=== PATIENT | male | born 1960 | race Caucasian/White ===

== ENCOUNTER 2023-04-22 23:54 | Day surgery (SDC) | payer MEDICARE, OTHER, SELFPAY ==
[2023-04-22 19:01] VITALS: BMI 27.8
[2023-04-22 19:03] VITALS: BP 128/80
[2023-04-22 19:22] LABS: % Basophils 0.4 % (0-2); % Eosinophils 0.5 % (0-6); % Immature Granulocytes 0.4 % (0-0.5); % Lymphocytes 14.9 % (20.5-51.1); % Monocytes 10.4 % (1.7-9.3); % Neutrophils 73.4 % (42.2-75.2); Absolute Basophils 0.1 10^3/uL (0-0.2); Absolute Eosinophils 0.1 10^3/uL (0-0.7); Absolute Immature Granulocytes 0.1 10^3/uL (0-0.05); Absolute Lymphocytes 2.4 10^3/uL (1.2-3.4); Absolute Monocytes 1.7 10^3/uL (0.1-0.6); Hematocrit 39.8 % (39.0-52.0); Hemoglobin 14.1 g/dL (13.0-18.0); Mean Corp Hgb Conc. 35.4 g/dL (33.0-37.0); Mean Corpuscular Hgb 30.3 pg (27.0-31.0); Mean Corpuscular Volume 85.4 fL (80.0-94.0); Mean Platelet Volume 11.5 fL (7.4-10.4); Nucleated Red Blood Cells % 0 % (-); Platelet Count 220 10^3/uL (130-400); Red Blood Cell Count 4.66 10^6/uL (4.70-6.10); Red Cell Dist. Width 11.8 % (11.5-14.5); White Blood Cell Count 16.3 10^3/uL (4.8-10.8)
[2023-04-22 19:34] LABS: ALT (SGPT) 29 U/L (0-50); AST (SGOT) 25 U/L (17-59); Albumin 4.3 g/dl (3.5-5.0); Alkaline Phosphatase 96 U/L (38-126); Blood Urea Nitrogen 13 mg/dl (9-20); Carbon Dioxide 29 mmol/L (22-30); Chloride 100 mmol/L (98-107); Glucose 101 mg/dl (70-99); Lipase 56 U/L (23-300); Potassium 3.9 mmol/L (3.5-5.1); Sodium 135 mmol/L (135-145); Total Bilirubin 1.2 mg/dl (0.2-1.3); eGFR > 60.00
[2023-04-22 21:23] VITALS: BP 114/68
--- NOTE | 2023-04-22 21:26 | ED.GENMED ---
History of Present Illness
General
Chief Complaint: Abdominal Pain
Source: patient
Exam Limitations: none
Time Seen by Provider: 04/22/23 20:56
Travel History
Have you had any contact with someone who has COVID-19?: No
Do you have any symptoms of coronavirus? Fever > 100 degrees, chills, cough, shortness of breath, sore throat, loss of taste or smell, muscle aches, or headache?: No
History of Present Illness
History of Present Illness:
This is a 63 year old male that comes in with c/o abd pain. States that he started last night feeling that his abd was puffy. States that after he eat it really got hug. Then at 2am he awoke with pain. States that he did not sleep al night. States
that he tried a fleets enema today and he went to the BR but this did not help the pain. Patient called the PCP and was told to come to the ER. States that is nauseated, has had a fever and a headache. Denies any chills, chest pain, SOB, vomiting,
diarrhea, dizziness, urinary burning.
Past History
Past History
ED Past Medical History: None, Asthma and GERD
ED Past Surgical History: Orthopedic (Left knee tumor removed), Tonsilectomy and Other (Nasal Polyps removed)
Social History
Tobacco: Non-smoker
Alcohol: Occasional
Drug: None
Personal:
Living: alone
Review of Systems
Review of Systems
All Other Systems: ROS reviewed and negative except as documented in HPI and ROS
Constitutional: Reports fever; Denies chills
EENT: Reports no symptoms
Respiratory: Reports no symptoms; Denies cough or trouble breathing
Cardiac: Reports no symptoms; Denies chest pain
ABD/GI: Reports abdominal pain and nausea; Denies vomiting or diarrhea
: Reports no symptoms; Denies dysuria, frequency or urgency
Musculoskeletal: Reports no symptoms
Skin: Reports no symptoms
Neurological: Reports headache; Denies dizzy
Psychiatric: Reports no symptoms
Phy Exam
General Physical Exam
General Presentation: no apparent distress
General age: appears stated age
General Skin: warm and dry
General Habitus: normal
General Mental: alert
General Hydration: appears well hydrated
ENT Exam
ENT Exam: TM's normal, pharynx normal and neck supple
Eye Exam
Eye Exam: EOMI
Cardiovascular Exam
Cardiovascular Exam: regular rate/rhythm, no edema, no murmur and normal peripheral pulses
Pulmonary Exam
Pulmonary Exam: lungs clear, no respiratory distress, no rales, chest non tender, no crackles, no rhonchi, no wheezing and no cough
Gastrointestinal Exam
Gastrointestinal Exam: normal bowel sounds, soft, no organomegaly, no pulsatile mass, non distended and tender (Right sided abd tenderness with palpation)
Musculoskeletal Exam
Musculoskeletal Exam: full ROM and no edema
Skin Exam
Skin Exam: normal color, warm/dry, no rash and no petechia
Psychiatric Exam
Psychiatric Exam: normal mood/affect
Course
Orders/Labs/Results
Orders:
Orders
04/22/23 19:09
Complete Blood Count/With Diff Urgent
Comprehensive Metabolic Panel Urgent
Lipase Urgent
04/22/23 21:26
CT Abd/pelvis W Iv Cont Urgent
Comment:
Reason For Exam: Right lower abd pain
0.9% Sodium Chloride 1000 ml [Nss] 1,000 ml IV BOLUS
04/22/23 22:48
Piperacillin/Tazo 3.375 Gram [Zosyn] 3.375 gram in 50 ml IV NOW
Abnormal Lab Results
04/22/23
19:09
WBC 16.3 H 10^3/uL
(4.8-10.8)
RBC 4.66 L 10^6/uL
(4.70-6.10)
MPV 11.5 H fL
(7.4-10.4)
Abs Immat Gran (auto) 0.1 H 10^3/uL
(0-0.05)
Absolute Neuts (auto) 12.0 H 10^3/uL
(1.4-6.5)
Absolute Monos (auto) 1.7 H 10^3/uL
(0.1-0.6)
Lymphocytes % 14.9 L %
(20.5-51.1)
Monocytes % 10.4 H %
(1.7-9.3)
Glucose 101 H mg/dl
(70-99)
04/22/23 19:09
04/22/23 19:09
Leukocytosis, Glucose nonfasting. Lipase normal at 56
Vital Signs
Initial and Last Documented VS:
Initial Vital Signs
Temp Pulse Resp BP Pulse Ox
100.0 F 66 18 128/80 97
04/22/23 19:03 04/22/23 19:03 04/22/23 19:03 04/22/23 19:03 04/22/23 19:03
Last Documented Vital Signs
Temp Pulse Resp BP Pulse Ox
100.0 F 66 18 130/73 98
04/22/23 19:03 04/22/23 19:03 04/22/23 19:03 04/22/23 22:27 04/22/23 22:28
MDM/Problems Addressed
Differential Diagnosis Includes:
Appendicitis,
MDM/Problems Addressed:
This is a 63 year old male that comes in with c/o abd pain. States that he started last night to feel puffy and then at 2am he awoke with abd pain and he was unable to sleep all night. States that his PCP told him to come to the ER.
Will get labs, CT abd/pelvis. Offered patient medication for pain and nausea, but he refused.
Back into see patient. Explained that he has an acute appendicitis. Patient will be admitted and started on IV antibiotics. Dr Espinosa will keep on his service. House UNLOADING CHECKER to admit.
Chronic conditions affecting care:
NA
Acute Exacerbation and/or Progression of Chronic Illness:
NA
*Radiology
Radiology exam reviewed: radiology read reviewed (CT-Acute appendicitis, with adjacent stranding. No free air. There is no fluid collection to suggest an abscess. )
*Pulse Oximetry
Patient hypoxic: no
*EKG
Interpreted by ED Provider?: NA
Rate: EKG- N/A
*Stamp Classifier Interpretation
Rate: Stamp Classifier- N/A
*Critical Care Note
Total Time (30-74mins, 75-104mins- exclusive of procedures): Not Applicable
ED Attending Note
-
Portions of this chart may have been created with voice recognition software.� Occasional wrong word or��sound alike� substitutions may have occurred due to the inherent limitations of voice recognition software.
Discharge Plan
Departure
Patient Disposition: Admit
Date of Disposition: 04/22/23
Time of Disposition: 22:52
Admit to: Med/Surg
Presentation/result/management discussed w/ accepting MD/DO: Dr. Espinosa
Patient with high blood pressure during this ER visit?: Yes
Condition: Good
Covid-19: Not Applicable
Discharge Problem:
Acute appendicitis
Referrals:
UNKNOWN - PT DOES,NOT KNOW [Family Provider] -
Interventions
Interventions:
*Risk Screen - Suicide Last Done: 04/22/23 19:03
*General Assessment Last Done: 04/22/23 19:03
*Neglect/Abuse Screening Last Done: 04/22/23 19:03
*ED COVID-19 Vaccine History Last Done: 04/22/23 19:03
VK-Mmdsoc-[id number] Assessment Last Done: 04/22/23 21:51
[2023-04-22] MEDS: NSS 1000 IV (21:57)
[2023-04-22 22:27] VITALS: BP 130/73
[2023-04-22 23:00] VITALS: BP 138/73
[2023-04-23] VITALS (17 sets, daily range): BP systolic 106–173; BP diastolic 54–82; BMI 27.8
[2023-04-23] MEDS: ZOSYN 50 IV ×5 (00:02→23:52)
[2023-04-23] MEDS: NSS 1000 IV ×2 (01:04→12:41)
--- NOTE | 2023-04-23 01:17 | HPS.HSE ---
Addendum entered and electronically signed by Bryant Servin MD 04/23/23 09:22:
I saw and examined the patient independently.
The Pipe Roller's note was reviewed and I agree with the note, assessment and plan except where noted below.
Comment: This is a 63-year-old male who presents to the ED with 2 days of worsening right-sided abdominal pain. Exam, imaging, lab work all consistent with acute appendicitis, likely perforated.
N.p.o., IV fluids, IV Zosyn.
Will plan for laparoscopic appendectomy and possible drain placement in the OR today.
Risks/Benefits/Alternatives, expected postoperative course and possible complications (bleeding, infection, injury to surrounding structures, acute/chronic pain) discussed at length. Patient wishes to proceed with surgery. All questions answered.
Consent obtained.
I spent roughly 60 minutes in total for the care of this patient today including direct patient care and counseling, reviewing labs, imaging, coordination of care, as well as documentation.
Original Note:
Family Physician
-
Family Physician: NOT KNOW UNKNOWN - PT DOES
Chief Complaint
-
abdominal pain, nausea, bloating
History of Present Illness
This is a pleasant 63 year old male who comes to the ED with 24 hours worth of increasing abdominal bloating, pain, nausea and fever. He thought he was constipated and tried an enema at home with no result or lessening of symptoms. He consulted his
PCP who recommended he come to the ED for evaluation. PMH includes GERD, asthma, prior COVID infection, nasal polyp removal. Associated symptoms included headache and nausea. Nothing made his pain better at home. He usually takes ibuprofen. During
this interview he felt comfortable and also denied sob or chest pain.
Medical History
Past Medical History
Past Medical History: Reports Asthma, GERD and Other (herpes zoster)
Past Surgical History: Reports Tonsilectomy and Other
Additional Past Surgical History:
nasal polyp removal, tumor removal on knee
Social History
Tobacco: Non-smoker
Alcohol: Occasional
Drug: None
Personal:
Living: Alone
Employment: Employed
Family History
Family History: Cancer (prostate )
Allergies / Home Medications
Allergies reflects when Allergies were last updated in [facility] [facility].
Home Medications with original date entered in [facility]
Allergy/Medication List:
Allergies
Allergy/AdvReac Type Severity Reaction Status Date / Time
mold,tree pollen,ragweed Allergy asthma,head Uncoded 04/22/23 19:05
congestion
Home Medications
albuterol sulfate 90 mcg/actuation aerosol inhaler 2 puff inhalation R Q6 PRN sob/wheezing 04/22/23
cholecalciferol (vitamin D3) 25 mcg (1,000 unit) tablet (Vitamin D3) 25 mcg PO DAILY 04/22/23
fluticasone propionate 50 mcg/actuation nasal spray,suspension 1 spray intranasal DAILY PRN allergies 04/22/23
multivitamin 1 tab PO DAILY 04/22/23
omeprazole 20 mg capsule,delayed release 20 mg PO DAILY 04/22/23
sildenafil 100 mg tablet 100 mg PO DAILY PRN ED 04/22/23
Review of Systems
-
History Source: Patient and Coordinated Provider
A 12 point ROS was completed and negative except as noted: Yes
Constitutional: Reports No Symptoms
EENT: Reports No Symptoms
Respiratory: Reports No Symptoms
Cardiac: Reports No Symptoms
Abdomen/GI: Reports No Symptoms
: Reports No Symptoms
Musculoskeletal: Reports No Symptoms
Skin: Reports No Symptoms
Neurological: Reports No Symptoms
Endocrine: Reports No Symptoms
Hematologic/Lymphatic: Reports No Symptoms
Psych: Reports No Symptoms
Physical Exam
Vital Signs
Vital Signs
Temp Pulse Resp BP Pulse Ox
100.0 F 66 18 135/73 95
04/22/23 19:03 04/22/23 19:03 04/22/23 19:03 04/23/23 00:00 04/23/23 00:15
Physical Exam
General: Well Developed, Well Nourished, No Apparent Distress, Comfortable and Conversant
HEENT: NormoCephalic, Moist mucous membranes, Atraumatic and PERRLA
Respiratory: Clear and Non Labored Respirations
Cardiac: S1/S2 and Regular Rhythm
Breast: Deferred by me
GI: Soft and Tender
Rectal: Deferred by Provider
Genito-urinary: Clear Urine
Musculoskeletal: No Clubbing, No Cyanosis and No Edema
Skin: Warm and Dry
Neuro: Awake, Alert, AO x 3, No Motor Deficits and Nonfocal/grossly intact
Hematologic/Lymphatic: No Lymphadenopathy
Psych: Calm
Laboratory Results
-
04/22/23 19:09
04/22/23 19:09
Laboratory Results
Total Bilirubin 1.2 mg/dl (0.2-1.3) 04/22/23 19:09
AST 25 U/L (17-59) 04/22/23 19:09
ALT 29 U/L (0-50) 04/22/23 19:09
Alkaline Phosphatase 96 U/L (38-126) 04/22/23 19:09
Lipase 56 U/L (23-300) 04/22/23 19:09
Data Reviewed
-
CT Scan: Report Reviewed by me
Lab Data: Labs Reviewed by me
Old Records: Reviewed
Impression/Plan
-
IMPRESSION: acute appendicitis
PLAN: This is a pleasant 63 year old male who comes to the ED with 24 hours worth of increasing abdominal bloating, pain, nausea and fever. He thought he was constipated and tried an enema at home with no result or lessening of symptoms. He
consulted his PCP who recommended he come to the ED for evaluation. PMH includes GERD, asthma, prior COVID infection, nasal polyp removal. Associated symptoms included headache and nausea. Nothing made his pain better at home. He usually takes
ibuprofen. During this interview he felt comfortable and also denied sob or chest pain.
*Acute appendicitis: NPO, NS IVF, Zosyn, Zofran prn, Morphine IV.
*Asthma: Albuterol inhaler prn.
*GERD: Protonix IV.
*DVT prophylaxis: Lovenox, SCDs, TEDS, oob.
*Disposition: FC. General surgery service.
--- NOTE | 2023-04-23 08:32 | PTCARENOTE ---
pt is admitted but is a hold in the ED waiting admission to floor. Pt is going to OR today (time unknown right now), pt is ambulatory and is on r.a, call dowell is in reach will continue to monitor.
[2023-04-23] MEDS: NSS (PRESERVATIVE FREE) 10 ML IV (08:52)
[2023-04-23] MEDS: PROTONIX IV 40 MG IV (08:52)
--- NOTE | 2023-04-23 11:42 | W.SUR.PREOP ---
Pre-Operative Surgical Note
-
I have examined this patient prior to the performance of the scheduled procedure.
The patient's condition is unchanged from the time of the current History and
Physical and the patient is able to undergo the scheduled procedure.
--- NOTE | 2023-04-23 11:42 | W.IMMPOSTOP ---
Surgical Immed Post Op Note
-
Primary Surgeon: Bryant Servin MD
Assisting Surgeon: None
Pre-op Diagnosis: Acute appendicitis
Post-op Diagnosis: Same
Procedure Performed: Laparoscopic appendectomy
Anesthesia Type: General
Specimen / Cultures: Appendix
Estimated Blood Loss: 3 cc
Complications: None
Operative Findings: Acute inflamed, nonperforated, nonsuppurative appendicitis. Base involved taken with a 45 mm alston load on the Endo ANSHU stapler.
POST OP PLAN:
Imaging: None
Labs: Routine AM
Diet: Advance to Regular as tolerated
Analgesia: Tylenol 650mg q6 Reny, Kelley 5mg q6 PRN, Dilaudid 0.5mg q2h PRN
Neuro/vascular checks: q4h
AC/AP: Hold Therapeutic AC, Ok for DVT PPx
Activity: Ad Guillermina
Wound/Incisions/Drains: Routine
Abx: Zosyn or p.o equivalent X 4 days
Dispo: RNF
--- NOTE | 2023-04-23 11:44 | OR.RPT ---
Operative Report
Operative Report
Patient Name: Efren Constantino
: 1960
Date of Operation: 04/23/2023
Preoperative Diagnosis: Acute Appendicitis
Postoperative Diagnosis: umbilical hernia, acute appendicitis
Procedure(s):
Laparoscopic Appendectomy
Surgeon(s):
Dr. Servin
Truck Shop Mechanic(s):
None
Anesthesia: General
Estimated Blood Loss: 3 cc
Urine Output: None
Drains/Lines/Implants: None
Specimens:
1. Appendix
HPI/Surgical Indications:
This is a 63year old male who presents with a 2 day history of abdominal pain. Exam, labs and imaging are consistent with acute appendicitis. Risks/Benefits/Alternatives were discussed at length, and the patient agreed to proceed with surgery.
Findings:
Acute non-perforated appendicitis
Procedure Description:
The patient was placed in the supine position, with the left arm tucked, and general anesthesia was induced. The abdomen was prepared and draped in a sterile fashion so as to expose the entire abdomen. A surgical time out was taken. Abdominal access
was obtained with an 12mm infra-umbilical Marc Entry. The patient had a small umbilical hernia here which were used to gain access. After confirming no injury on entrance, two additional 5mm ports were placed in the suprapubic area just off
midline and in the left lower quadrant. The patient was placed in Trendelenberg with the right slightly up . The appendix was identified and notably inflamed, but not suppurative or perforated. There was some free fluid in the area but it did not
appear infected. The mesoappendix was ligated using a laparoscopic bipolar energy device. The base of the appendix appeared involved/thickened and was ligated/divided using a 45 [place] load on an Endo ANSHU. The appendix was placed in a specimen
retrieval bag. Hemostasis was confirmed and the ports were removed under visualization. The specimen was passed off the field. The umbilical port/hernia site was closed with a [id number] 0-PDS and the skin for all three ports was closed with
interrupted monocryls and covered with dermabond. The patient was awoken from anesthesia in good condition and transported to the recovery area.
I was the attending physician and performed the procedure with no assistance. I was present for all portions of the case
Bryant Servin MD
--- NOTE | 2023-04-23 13:30 | PTCARENOTE ---
pt admitted to room 2100 from the PACU at 1300. pt arrived via bed. sleepy but arousable. c/o sore throat -ice chips and water provided. IVF infusing. pt oriented to room, call dowell, and plan of care with verbalized understanding. 3 lap sites
SCOTTIE on abdomen-clean, surgical adhesive present. remains due to void-urinal at bedside. resting at present time. will observe.
[2023-04-23] MEDS: LOVENOX 40 MG SC (18:24)
[2023-04-23] MEDS: TORADOL 15 MG IV (20:14)
[2023-04-24 03:00] VITALS: BP 103/55
[2023-04-24] MEDS: NSS 1000 IV (03:27)
[2023-04-24] MEDS: TORADOL 15 MG IV (03:29)
[2023-04-24] MEDS: ZOSYN 50 IV (05:50)
[2023-04-24 07:20] VITALS: BP 118/67
[2023-04-24] MEDS: NSS (PRESERVATIVE FREE) 10 ML IV (07:51)
[2023-04-24] MEDS: PROTONIX IV 40 MG IV (07:52)
--- NOTE | 2023-04-24 08:40 | W.PN.GS2 ---
Addendum entered and electronically signed by Jules Osborne MD 04/24/23 11:35:
Patient seen and examined. Agree with assessment plan as documented below by LEDGER POSTER.
No major complaints. Some mild umbilical soreness. No nausea or vomiting. Passing flatus, no BM. No fevers.
Gen: NAD
Abd: soft, minimal tenderness, ND, incisions c/d/i - no eirythema or drainage, mild ecchymosis or umbilicus
POD #1 lap appendectomy for acute nonperforated appendicitis
AFVSS
Following expected course
+Flatus/tolerating diet
-- Continue regular diet
-- Abx for total 4 days post-op
-- PO analgesics prn
-- DC today
Original Note:
Today's Communication / Plan
-
D/C to home
Assessment / Plan
-
63 yo male who is POD #1 lap appendectomy for acute nonperforated appendicitis
AFVSS
Following expected course
+Flatus/tolerating diet
voiding without difficulty
Continue regular diet
PO analgesics prn
Dispo planning
Subjective Data
-
Date of Service: April 24, 2023
Patient seen and examined at bedside with Dr. Osborne. Denies n/v. Tolerating diet. Passing flatus. Some post op soreness around umbilical incision.
Objective Data
-
Intake and Output
04/23/23 04/24/23 04/25/23
06:59 06:59 07:59
Intake Total 1640 / 1640
Output Total 810 / 810
Balance 830 / 830
Intake:
Oral fluids 720 / 720
IV fluids (Total) 820 / 820
normosol 100 / 100
IV piggybacks 100 / 100
Output:
Urine, Voided 810 / 810
Other:
Number of approximated MODERATE 2
amounts of urine
Vital Signs
Temp Pulse Resp BP Pulse Ox
98.3 F 53 16 103/55 97
04/24/23 03:00 04/24/23 03:00 04/24/23 03:00 04/24/23 03:00 04/24/23 03:00
Lab Results
04/22/23 19:09
04/22/23 19:09
Calcium 9.0 mg/dl (8.4-10.2) 04/22/23 19:09
Total Bilirubin 1.2 mg/dl (0.2-1.3) 04/22/23 19:09
AST 25 U/L (17-59) 04/22/23 19:09
ALT 29 U/L (0-50) 04/22/23 19:09
Alkaline Phosphatase 96 U/L (38-126) 04/22/23 19:09
Total Protein 7.0 g/dl (6.3-8.2) 04/22/23 19:09
Albumin 4.3 g/dl (3.5-5.0) 04/22/23 19:09
Physical Exam
-
NAD
ABD soft, ND, incisional tenderness (mild)
Incisions clear, dry, intact.
--- NOTE | 2023-04-24 09:24 | CM ---
CM following re: d/c planning
Chart reviewed
CM met with the patient at bedside; IA completed
Pt is here as observation, [place] letter explained and copy provided
Pt states he and his S.O. reside in a [place] with no [facility]
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
Pt has no past hx of VN/SNF/DME
Pt does confirm prescription coverage
Pt pharmacy is [facility]
Pt PCP-[facility] and the patient sees (Dr. Granda until he retires in August)
Pt will then be seen by Rachna Bradford
Pt has been cleared medically for d/c and has no needs
PLAN; d/c home no needs
[2023-04-24 11:15] VITALS: BP 118/60
--- NOTE | 2023-04-24 12:22 | PTCARENOTE ---
Patient discharged to home with girlfriend at 1220 with all belongings and discharge instructions. Discharge instructions reviewed with patient and significant other.
--- NOTE | 2023-04-24 14:26 | W.DCSUMMARY ---
Discharge Summary
Discharge Data
Date of Admission: 04/22/23
Date of Discharge: 04/24/23
-
Pending Results: No
Hospital Course
This is a 63 yo male who presented with acute appendicitis. He was taken to the operating room for laparoscopic appendectomy with nonperforated acute appendicitis noted. He was able to have diet advanced post operatively with good pain control and
was discharged to home on antibiotics with outpatient follow up planned in the coming weeks.
Discharge Plan
-
Patient Disposition: Home (Routine Discharge)
Discharge Diagnosis/Procedures: Appendicitis status post laparoscopic appendectomy
Condition: Good
Diet: As tolerated and Regular
Activity: No strenuous activity
Bathing Restrictions: OK to Shower
Activity Restrictions/Additional Instructions:
Instructions following Laparoscopic appendectomy
Please call [phone] if you have any questions or concerns after your surgery.
Wound Care:
Your incisions are covered with skin glue which will come off on it�s own in 5-10 days.
It is ok to shower the day after your surgery. Do not scrub the incisions, let soap and water wash over them and pat dry.
� Bruising around your incisions is normal.
� Using ice packs will help minimize this swelling.
� No swimming or soaking incisions for 1 week.
� Your stitches will dissolve and do not need to be removed.
Urinary retention:
If you are unable to urinate 6-8 hours after your surgery, please call [phone] to discuss further management.
Activity:
No heavy lifting more than 15 pounds for the next 3 weeks, then you may gradually lift heavier objects as tolerated by discomfort. Otherwise activity as tolerated by your comfort level.
Pain Management:
Use Tylenol, ibuprofen and ice packs to treat your pain.
� You may take 650 milligrams of Tylenol (Max 3 grams per day) every 6 hours, and 600 mg of ibuprofen also every 6 hours. (you can alternate them every 3 hours)
� You may use an ice pack to your incision as needed.
� If you still have pain not controlled by these measures, take your prescription pain medication as prescribed.
Medications:
You may resume your home medications.
Bowel Medications:
Prescription pain medication can make you constipated. If you take this medication, also take colace 100 mg twice daily (this is over the counter). If this is not sufficient, you may take Miralax (polyethylene glycol) to help move your bowels.
Diet:
After your procedure, there are no dietary restrictions.
Driving restrictions:
No driving if you are taking prescription pain medication or if you think your normal reaction time and attentiveness has been slowed by your surgery.
Things to Look out for:
Worsening Abdominal pain, redness or drainage from incision
Call Doctor for:
Please call if you notice worsening redness or drainage from incision(s) lasting longer than 5 days after your surgery, any foul-smelling drainage from the incision, pain not controlled by pain medications, persistent nausea and vomiting, or for any
fevers greater than 101.3 F. The number for questions/concerns is [phone]
Follow-up:
Follow-up appointment will be scheduled with your surgeon in 3-4 weeks. Please call prior to your appointment if you have any questions or concerns. [phone]
Referrals:
Bryant Servin MD [Active] - in two to four weeks
Prescriptions:
New
acetaminophen [acetaminophen] 325 mg tablet
650 mg PO Q4HPRN PRN (Reason: mild pain) Qty: 1 0RF
ibuprofen 200 mg tablet
400 - 600 mg PO Q6HPRN PRN (Reason: moderate pain) Qty: 1 0RF
amoxicillin-pot clavulanate [amoxicillin-pot clavulanate] 875-125 mg tablet
1 tab PO Q12 Qty: 8 0RF
oxycodone 5 mg tablet
5 mg PO Q4HPRN PRN (Reason: breakthrough/severe pain) Qty: 10 0RF
Continued
multivitamin Tablet
1 tab PO DAILY
sildenafil 100 mg tablet
100 mg PO DAILY PRN (Reason: ED)
omeprazole 20 mg Capsule,Delayed Release(Dr/Ec)
20 mg PO DAILY
albuterol sulfate 90 mcg/actuation HFA aerosol inhaler
2 puff INHALATION R Q6 PRN (Reason: sob/wheezing)
fluticasone propionate 50 mcg/actuation [place],Suspension
1 spray INTRANASAL DAILY PRN (Reason: allergies)
cholecalciferol (vitamin D3) [Vitamin D3] 25 mcg (1,000 unit) Tablet
25 mcg PO DAILY
Discharge Orders:
Discharge Patient (As Directed); Ordered 04/24/23
Ordered By: Dipika Mercedes
Discharge Date and Time
Discharge Date/Time: 04/24/23 12:24
== END 2023-04-24 12:24 | disposition home or self-care (01) ==
LOC: SDS 23:54
PROVIDERS: ATTENDING PHYSICIAN Surgery; EMERGENCY PHYSICIAN Student in an Organized Health Care Education/Training Program
DX: K35.80 Unspecified acute appendicitis (principal); J45.909 Unspecified asthma, uncomplicated; K21.9 Gastro-esophageal reflux disease without esophagitis; K42.9 Umbilical hernia without obstruction or gangrene
CPT/HCPCS: 44970; 88304; 74177; 80053; 83690; 85025; 96360; 99285; G0378; Q9967

== ENCOUNTER → 2023-11-19 07:31 | Outpatient (REF) | payer MEDICARE, OTHER, SELFPAY | LOC: HWRAD 07:31 | PROVIDERS: ATTENDING PHYSICIAN Otolaryngology; FAMILY PHYSICIAN Family Medicine | DX: J33.0 Polyp of nasal cavity (principal); J30.1 Allergic rhinitis due to pollen; J32.2 Chronic ethmoidal sinusitis | CPT/HCPCS: 70486 ==

== ENCOUNTER → 2024-01-14 10:30 | Day surgery (SDC) | payer MEDICARE, OTHER, SELFPAY ==
[2024-01-14 11:25] LABS: Hematocrit 41.3 % (39.0-52.0); Hemoglobin 13.9 g/dL (13.0-18.0); Mean Corp Hgb Conc. 33.7 g/dL (33.0-37.0); Mean Corpuscular Hgb 30.5 pg (27.0-31.0); Mean Corpuscular Volume 90.8 fL (80.0-94.0); Mean Platelet Volume 11.2 fL (7.4-10.4); Platelet Count 207 10^3/uL (130-400); Red Blood Cell Count 4.55 10^6/uL (4.70-6.10); Red Cell Dist. Width 11.9 % (11.5-14.5); White Blood Cell Count 6.3 10^3/uL (4.8-10.8)
== END ==
LOC: SDSPAT 10:30
PROVIDERS: ATTENDING PHYSICIAN Otolaryngology; FAMILY PHYSICIAN Family Medicine
DX: Z01.810 Encounter for preprocedural cardiovascular examination (principal); Z01.812 Encounter for preprocedural laboratory examination
CPT/HCPCS: 93005; 36415; 85027

== ENCOUNTER 2024-01-27 06:28 | Day surgery (SDC) | payer MEDICARE, OTHER, SELFPAY ==
[2024-01-14 12:15] VITALS: BMI 28.5
[2024-01-27] VITALS (9 sets, daily range): BP systolic 128–152; BP diastolic 70–80; BMI 28.5
[2024-01-27] MEDS: TYLENOL 1000 MG PO (09:08)
[2024-01-27] MEDS: NORMOSOL-R/PLASMALYTE-A 1000 IV (09:08)
== END 2024-01-27 12:02 | disposition home or self-care (01) ==
LOC: SDS 06:28
PROVIDERS: ATTENDING PHYSICIAN Otolaryngology
DX: J32.9 Chronic sinusitis, unspecified (principal)
CPT/HCPCS: 31254; 31267; 88304; 88311